=== PATIENT | male | born 1995 | race Caucasian/White ===

== ENCOUNTER 2022-11-15 09:31 | Inpatient (IN) | payer MEDICAID ==
[~2022-11-15] VITALS: Ht 180.3 cm; Wt 101.6 kg
[2022-11-15 09:44] VITALS: BP 184/102
[2022-11-15 10:53] LABS: BASOPHILS % (AUTO) 0.2 % (0.0-2.0); EOSINOPHILS % (AUTO) 0.1 % (0.0-4.0); HEMATOCRIT 40.8 % (36-52); LYMPHOCYTES % (AUTO) 5.7 % (20.5-51.1); MEAN CORPUSCULAR HEMOGLOBIN 29 pg (27-31); MEAN CORPUSCULAR HGB CONC 34 g/dL (33-37); MEAN CORPUSCULAR VOLUME 84.7 fL (80-94); MONOCYTES # (AUTO) 1.2 K/uL (0.8-1.0); MONOCYTES % (AUTO) 7.4 % (1.7-9.3); NEUTROPHILS # (AUTO) 14.5 K/uL (1.8-7.7); NEUTROPHILS % (AUTO) 86.6 % (42.2-75.2); PLATELET COUNT (AUTO) 242 K/uL (140-450); RED BLOOD CELL COUNT(AUTO) 4.81 MIL/uL (4.20-6.10); RED CELL DISTRIBUTION WIDTH 12.7 % (11.6-13.7); WHITE BLOOD COUNT (AUTO) 16.7 K/uL (4.8-10.8)
[2022-11-15 10:55] LABS: BILIRUBIN,URINE 1+ (NEGATIVE); BLOOD, URINE 2+ (NEGATIVE); COLOR,URINE YELLOW (YELLOW); LEUKOCYTE ESTERASE ,URINE NEGATIVE (NEGATIVE); NITRITE, URINE NEGATIVE (NEGATIVE); PH,URINE 6.5 (5.0-9.0); UGLUCOSE NEGATIVE (NEGATIVE)
[2022-11-15 11:05] LABS: APPEARANCE,URINE CLOUDY (CLEAR)
[2022-11-15 11:08] LABS: RBC,URINE 11-20 (MOD) /HPF (0-5)
[2022-11-15 11:09] LABS: URINE AMORPHOUS URATE 1+ /HPF (None Seen)
[2022-11-15] MEDS ORDERED: ONDANSETRON 4 MG ODT PO ONE (11:20)
[2022-11-15] MEDS ORDERED: FAMOTIDINE 20 MG TAB PO ONE (11:20)
[2022-11-15] MEDS ORDERED: ALUMINUM HYD/MAG/SIMETHICONE 30 ML UDC PO ONE (11:20)
[2022-11-15 11:21] LABS: ALBUMIN 3.9 g/dL (3.4-5.0); ANION GAP 13.4 (8-16); CARBON DIOXIDE 29.8 mmol/L (21-32); CREATININE 1.1 mg/dL (0.6-1.3); POTASSIUM 3.2 mmol/L (3.5-5.1)
[2022-11-15] MEDS ORDERED: NACL 0.9% 1,000 ML IV ONE (12:45)
[2022-11-15] MEDS ORDERED: metroNIDAZOLE 500 MG/NS PREMIX 100 ML IV ONE (12:45)
[2022-11-15] MEDS ORDERED: KETOROLAC 15 MG/ML VIAL IVP ONE (12:45)
[2022-11-15] MEDS ORDERED: MORPHINE SULFATE 4 MG/ML SYR IVP ONE (12:50)
--- NOTE | 2022-11-15 13:00 | NUR ---
pt sleeping, no ac distress, sr on cm, o2 sat 98% ra, sr up times 2
[2022-11-15] MEDS ORDERED: cefTRIAXone 1,000 MG VIAL ONE (13:13)
[2022-11-15] MEDS ORDERED: ONDANSETRON 4 MG/2 ML VIAL IM/IVP PRN (13:55)
[2022-11-15] MEDS ORDERED: ACETAMINOPHEN 325 MG TAB PO PRN (13:55)
[2022-11-15] MEDS ORDERED: ZOLPIDEM 5 MG TAB PO PRN (13:55)
[2022-11-15] MEDS ORDERED: HYDROcodone/APAP 7.5/325 MG 1 TAB PO PRN (13:55)
[2022-11-15] MEDS ORDERED: DOCUSATE SODIUM 100 MG GELCAP PO PRN (13:55)
[2022-11-15] MEDS: NACL 0.9% 1,000 ML IV SCH (13:55)
[2022-11-15] MEDS ORDERED: guaiFENesin DM 200/20 MG-10 ML 10 ML UDC PO PRN (13:55)
[2022-11-15 14:14] LABS: MAGNESIUM 1.9 mg/dL (1.8-2.4); PHOSPHORUS 2.8 mg/dL (2.5-4.9)
--- NOTE | 2022-11-15 15:00 | NUR ---
a/o times 4, nad, abd pain 07/21, no n/v, sr on cm, o2 sat 98% ra, sr up times 2. elev bp, Dr Kwok made aware, no med orders at this time, stated let it to be addressed once admitted
[2022-11-15 15:30] VITALS: BP 182/105
--- NOTE | 2022-11-15 15:30 | NUR ---
PT WAS BROUGHT IN FROM THE ED IN STABLE CONDITION, ABLE TO AMBULATE TO THE BED WITH A STEADY GAIT. ON ROOM AIR WITH CHEST RISING AND FALLING EVEN AND UNLABORED. IV TO LEFT AC 20 G, PATENT AND INTACT CONNECTED TO NS @60. PT DENIES PAIN, N/V AT THIS TIME. A&OX4, SKIN INTACT, LUNGS CLEAR, S1&S2 HEART SOUNDS, ACTIVE BOWEL SOUNDS, +2 PEDAL PULSES, NO EDEMA NOTED, NO WEAKNESS IN EXTREMITIES NOTED. BLOOD PRESSURE NOTED TO BE ELEVATED UPON ARRIVAL, MD NOTIFIED. PENDING NEW ORDERS. COMMUNICATION BOARD UPDATE, PT EDUCATED ON HOSPITAL SETTING AND CALL LIGHT. ALL SAFETY MEASURES IN PLACE, CALL LIGHT WITHIN REACH.
[2022-11-15 15:36] LABS: PROTHROMBIN TIME 10.2 secs (10.8-13.4)
--- NOTE | 2022-11-15 15:38 | NUR ---
pt to floor, report to LIAM Smith no events
[2022-11-15] MEDS: POTASSIUM CHLORIDE 10 MEQ TABER PO PRN (16:12)
[2022-11-15] MEDS: hydrALAZINE 20 MG/ML VIAL IVP PRN (16:13)
--- NOTE | 2022-11-15 16:13 | NUR ---
PRN HYDRALAZINE ADMINISTERED PER MD ORDER, PT EDUCATION PROVIDED. PT TOLERATED.
--- NOTE | 2022-11-15 16:30 | NUR ---
CALLED PTS MOTHER, MARIS, , TO INFORM HER OF PTS ADMISSION, ROOM NUMBER, AND POC PER PTS REQUEST. ALL QUESTIONS ANSWERED.
--- NOTE | 2022-11-15 17:13 | NUR ---
REASSESSED BLOOD PRESSURE, NOTIFIED MD OF CONTINUED HYPERTENSION. PENDING NEW ORDERS.
[2022-11-15] MEDS ORDERED: amLODIPine 5 MG TAB PO SCH (17:30)
--- NOTE | 2022-11-15 17:47 | NUR ---
ONE TIME DOSE, AMLODIPINE ADMINISTERED PER MD ORDER. PT EDUCATION PROVIDED, PT VERBALIZED UNDERSTANDING. PT AMBULATED TO RESTROOM. ALL NEEDS CURRENTLY MET.
[2022-11-15 20:00] VITALS: BP 155/78
--- NOTE | 2022-11-15 20:00 | NUR ---
RECEIVED PT AAOX4 , IV SITE INTACT AND PATENT , NPO EXCEPTS MEDS , NO S SX OF ADISTRESS NOTED , DENIES PAIN AT THIS TIME , WILL CONT. TO MONITOR , IVF INFUSING WELL .
[2022-11-15] MEDS: PIPERACILLIN/TAZOBACTAM 3.375 GM in DEXTROSE 5% 50 ML IV SCH (21:18)
--- NOTE | 2022-11-16 | NUR ---
ROUNDS , NO S / SX OF ACUTE DISTRESS NOTED , DENIES PAIN , CALL LIGHT URINAL WITHIN REACH .
[2022-11-16] MEDS: NACL 0.9% 1,000 ML IV SCH ×2 (03:07→05:40)
--- NOTE | 2022-11-16 03:25 | NUR ---
ROUNDS , NO COMPLAIN MADE , BP 154 / 95 - WILL CONT. TO MONITOR .
[2022-11-16 04:00] VITALS: BP 154/92
[2022-11-16] MEDS: PIPERACILLIN/TAZOBACTAM 3.375 GM in DEXTROSE 5% 50 ML IV SCH ×3 (05:34→21:52)
--- NOTE | 2022-11-16 05:54 | NUR ---
ROUNDS , NO COMPLAIN MAD4E , WILL CONT. TO MONITOR .
[2022-11-16 07:07] LABS: BASOPHILS # (AUTO) 0.1 K/uL (0.00-0.22); BASOPHILS % (AUTO) 0.4 % (0.0-2.0); EOSINOPHILS # (AUTO) 0.1 K/uL (0-0.4); EOSINOPHILS % (AUTO) 0.6 % (0.0-4.0); HEMATOCRIT 38.1 % (36-52); HEMOGLOBIN 13.4 g/dL (12.0-18.0); LYMPHOCYTES # (AUTO) 1.7 K/uL (2.0-11.5); LYMPHOCYTES % (AUTO) 11.3 % (20.5-51.1); MEAN CORPUSCULAR HEMOGLOBIN 29 pg (27-31); MEAN CORPUSCULAR HGB CONC 35 g/dL (33-37); MEAN CORPUSCULAR VOLUME 83.4 fL (80-94); MONOCYTES # (AUTO) 1.6 K/uL (0.8-1.0); MONOCYTES % (AUTO) 11.1 % (1.7-9.3); NEUTROPHILS # (AUTO) 11.3 K/uL (1.8-7.7); NEUTROPHILS % (AUTO) 76.6 % (42.2-75.2); PLATELET COUNT (AUTO) 211 K/uL (140-450); RED BLOOD CELL COUNT(AUTO) 4.57 MIL/uL (4.20-6.10); RED CELL DISTRIBUTION WIDTH 12.7 % (11.6-13.7); WHITE BLOOD COUNT (AUTO) 14.7 K/uL (4.8-10.8)
[2022-11-16 07:14] LABS: ANION GAP 14.5 (8-16); CREATININE 0.9 mg/dL (0.6-1.3); POTASSIUM 3.5 mmol/L (3.5-5.1)
[2022-11-16 07:15] LABS: PHOSPHORUS 2.9 mg/dL (2.5-4.9)
--- NOTE | 2022-11-16 07:25 | NUR ---
RECEIVED ENDORSEMENT FROM GOLF COURSE MANAGER NURSE FOR CONTINUITY OF CARE. PT IS AWAKE AND ALERT. STABLE AND NO SIGNS OF DISTRESS. WILL CONTINUE TO MONITOR.
[2022-11-16] MEDS: PANTOPRAZOLE 40 MG TABEC PO SCH (08:42)
[2022-11-16] MEDS: amLODIPine 5 MG TAB PO SCH (08:42)
--- NOTE | 2022-11-16 10:36 | NUR ---
PATIENT HAS BEEN SCREENED AND CATEGORIZED LOW NUTRITION RISK. PATIENT WILL BE SEEN WITHIN 7 DAYS OF ADMISSION. 11/22/[address]
[2022-11-16 12:00] VITALS: BP 154/92
[2022-11-16] MEDS ORDERED: MORPHINE SULFATE 2 MG/ML SYR ONE (15:20)
[2022-11-16] MEDS ORDERED: MORPHINE SULFATE 2 MG/ML SYR IVP ONE (15:40)
--- NOTE | 2022-11-16 15:42 | NUR ---
[facility] CALLED FOR MORPHINE FOR PT UNDERGOING HIDA. 2MG/ML WAS GIVEN TO PT AT 1532H.
--- NOTE | 2022-11-16 16:19 | NUR ---
DC PLANN[age] YRS OLD MALE PATIENT WAS ADMITTED FROM HOME WITH A DX OF CHOLECYSTITIS. PATIENT HAS NO MEDICAL HX. ABD US SHOWED CHOLELITHIASIS AND GALLBLADDER WALL THICKENING. CXR SHOWED NO ACUTE CARDIOPULMONARY DISEASE . RAPID COVID TEST NEGATIVE. ADMINISTERED IVF, IV ABX ZOSYN AND CONTINUED HOME MEDS. HIDA SCAN ORDERED. CONSULTED WITH SURGEON DR BRIGHT. DC PLAN TO GO HOME WHEN STABLE. CM TO FOLLOW.
[2022-11-16] MEDS: hydrALAZINE 20 MG/ML VIAL IVP PRN (16:49)
--- NOTE | 2022-11-16 16:54 | NUR ---
GIVEN HYDRALAZINE 10MG FROM THE 20MG VIAL, VERIFIED WITH NURSE FOR BP 177/ 114 . [id number]
[2022-11-16 20:00] VITALS: BP 150/84
--- NOTE | 2022-11-17 | NUR ---
REMINDS , NPO - FOR SURGERY THIS AM , PT VERBALIZES UNDERSTANDING .
--- NOTE | 2022-11-17 04:00 | NUR ---
ROUNDS , NO COMPLAIN MADE , AWAKE
[2022-11-17] MEDS: PIPERACILLIN/TAZOBACTAM 3.375 GM in DEXTROSE 5% 50 ML IV SCH ×3 (05:27→22:06)
--- NOTE | 2022-11-17 06:00 | NUR ---
ROUNDS , NO COMPLAIN MADE , AWAKE .
[2022-11-17 06:39] LABS: BASOPHILS % (AUTO) 0.2 % (0.0-2.0); EOSINOPHILS # (AUTO) 0.1 K/uL (0-0.4); EOSINOPHILS % (AUTO) 0.6 % (0.0-4.0); HEMATOCRIT 37.9 % (36-52); HEMOGLOBIN 12.9 g/dL (12.0-18.0); LYMPHOCYTES # (AUTO) 1.6 K/uL (2.0-11.5); LYMPHOCYTES % (AUTO) 8.9 % (20.5-51.1); MEAN CORPUSCULAR HEMOGLOBIN 29 pg (27-31); MEAN CORPUSCULAR HGB CONC 34 g/dL (33-37); MEAN CORPUSCULAR VOLUME 84.8 fL (80-94); MONOCYTES # (AUTO) 1.9 K/uL (0.8-1.0); MONOCYTES % (AUTO) 10.7 % (1.7-9.3); NEUTROPHILS # (AUTO) 14.5 K/uL (1.8-7.7); NEUTROPHILS % (AUTO) 79.6 % (42.2-75.2); PLATELET COUNT (AUTO) 224 K/uL (140-450); RED BLOOD CELL COUNT(AUTO) 4.47 MIL/uL (4.20-6.10); RED CELL DISTRIBUTION WIDTH 12.7 % (11.6-13.7); WHITE BLOOD COUNT (AUTO) 18.2 K/uL (4.8-10.8)
[2022-11-17 06:50] LABS: ANION GAP 12.3 (8-16); CARBON DIOXIDE 27.9 mmol/L (21-32); POTASSIUM 3.2 mmol/L (3.5-5.1)
[2022-11-17 06:53] LABS: MAGNESIUM 1.9 mg/dL (1.8-2.4)
--- NOTE | 2022-11-17 07:23 | NUR ---
ENDORSED FOR CONT. OF CARE .
[2022-11-17] MEDS ORDERED: SUGAMMADEX SODIUM 200 MG/2 ML VIAL IV ONE ×3 (09:00→11:51)
[2022-11-17] MEDS ORDERED: DEXAMETHASONE 4 MG/ML VIAL ONE ×2 (09:00→11:50)
[2022-11-17] MEDS ORDERED: PROPOFOL 200 MG/20 ML VIAL IV ONE ×3 (09:00→11:50)
[2022-11-17] MEDS ORDERED: HYDROmorphone PFS 2 MG/ML SYR ONE ×4 (09:00→13:18)
[2022-11-17] MEDS ORDERED: fentaNYL citrate 0.05 MG/ML - 50mL vial IV ONE ×2 (09:00→11:00)
[2022-11-17] MEDS ORDERED: ceFAZolin 2,000 MG VIAL ONE (09:00)
[2022-11-17] MEDS: PANTOPRAZOLE 40 MG TABEC PO SCH (09:00)
[2022-11-17] MEDS ORDERED: KETOROLAC 30 MG/ML VIAL ONE ×2 (09:00→11:50)
[2022-11-17] MEDS ORDERED: METOCLOPRAMIDE 10 MG/2 ML INJ VIAL ONE (09:00)
[2022-11-17] MEDS ORDERED: ONDANSETRON 4 MG/2 ML VIAL ONE ×3 (09:00→11:50)
[2022-11-17] MEDS: amLODIPine 5 MG TAB PO SCH (09:36)
[2022-11-17] MEDS ORDERED: ROCURONIUM 50 MG/5 ML VIAL IV ONE ×2 (11:00→11:50)
[2022-11-17] MEDS ORDERED: DESMOPRESSIN 4 MCG/ML AMP ONE (11:00)
[2022-11-17] MEDS ORDERED: LIDOCAINE 1% 500 MG/50 ML VIAL ONE (11:04)
[2022-11-17] MEDS ORDERED: BUPIVACAINE-MPF/EPI 0.25% 30 ML VIAL INJ ONE (11:05)
[2022-11-17] MEDS ORDERED: ONDANSETRON 4 MG/2 ML VIAL IVP PRN (11:40)
[2022-11-17] MEDS ORDERED: fentaNYL citrate 0.05 MG/ML VIAL ONE (11:45)
[2022-11-17] MEDS ORDERED: SUCCINYLCHOLINE CHLORIDE 200 MG/10 ML VIAL IVP ONE (11:50)
[2022-11-17] MEDS: HYDROmorphone 1 MG/ML AMP IVP PRN ×3 (13:12→13:32)
--- NOTE | 2022-11-17 14:30 | NUR ---
PT LEFT FOR SURGERY 11AM (LAP JENI), ARRIVED BACK TO [facility] 1330. VITAL SIGNS TAKEN Q15MIN FOR FIRST HOUR THEN Q30 FOR THE NEXT, VITAL SIGNS ALL STABLE. NO REPORTS OF PAIN OR DISCOMFORT. WILL CONTINUE WITH PATIENT CARE.
[2022-11-17] MEDS: NACL 0.9% 1,000 ML IV SCH (16:02)
--- NOTE | 2022-11-17 19:30 | NUR ---
RECEIVED ENDORSEMENT FROM DAY SHIFT NURSE FOR CONTINUITY OF CARE. PT IS AWAKE, ALERT AND VERBALLY RESPONSIVE. PT HAD SURGERY TODAY 11/17/22. PT VERBALIZED OF TOLERABLE PAIN WHICH DOES NOT NEED ANY PAIN MEDICATION AT THIS TIME.
--- NOTE | 2022-11-17 19:30 | NUR ---
ENDORSED PT TO NIGHTSHIFT NURSE FOR CONTINUITY OF CARE. PT IS RESTING IN BED, STABLE. NO SIGNS OF DISTRESS, NO REPORTS OF PAIN. PT STATED HE IS HUNGRY, INFORMED MD OF DIET ORDER. ENDORSED TO NIGHTSPRFT.
[2022-11-17 20:00] VITALS: BP 130/82
[2022-11-17] MEDS: POTASSIUM CHLORIDE 10 MEQ TABER PO PRN (22:07)
--- NOTE | 2022-11-18 | NUR ---
PT IS AWAKE AND WATCHING TV, NO COMPLAINTS OF PAIN.
[2022-11-18] MEDS: NACL 0.9% 1,000 ML IV SCH (03:31)
[2022-11-18 04:00] VITALS: BP 125/81
[2022-11-18] MEDS: PIPERACILLIN/TAZOBACTAM 3.375 GM in DEXTROSE 5% 50 ML IV SCH (05:42)
[2022-11-18 06:39] LABS: BASOPHILS % (AUTO) 0.1 % (0.0-2.0); HEMATOCRIT 36.5 % (36-52); HEMOGLOBIN 12.4 g/dL (12.0-18.0); LYMPHOCYTES # (AUTO) 0.9 K/uL (2.0-11.5); LYMPHOCYTES % (AUTO) 6.8 % (20.5-51.1); MEAN CORPUSCULAR HEMOGLOBIN 29 pg (27-31); MEAN CORPUSCULAR HGB CONC 34 g/dL (33-37); MEAN CORPUSCULAR VOLUME 85.5 fL (80-94); MONOCYTES # (AUTO) 1.3 K/uL (0.8-1.0); MONOCYTES % (AUTO) 9.8 % (1.7-9.3); NEUTROPHILS # (AUTO) 11.2 K/uL (1.8-7.7); NEUTROPHILS % (AUTO) 83.3 % (42.2-75.2); PLATELET COUNT (AUTO) 234 K/uL (140-450); RED BLOOD CELL COUNT(AUTO) 4.27 MIL/uL (4.20-6.10); RED CELL DISTRIBUTION WIDTH 12.6 % (11.6-13.7); WHITE BLOOD COUNT (AUTO) 13.4 K/uL (4.8-10.8)
[2022-11-18 06:57] LABS: MAGNESIUM 2.1 mg/dL (1.8-2.4)
--- NOTE | 2022-11-18 07:20 | NUR ---
ASSUMED CONTINUITY OF CARE. INITIAL ASSESSMENT DONE. KEEP COMFORTABLE ON BED. CALL LIGHT WITHIN REACH.
[2022-11-18 07:27] LABS: ANION GAP 9.5 (8-16); CARBON DIOXIDE 31.3 mmol/L (21-32); CREATININE 0.9 mg/dL (0.6-1.3); POTASSIUM 3.8 mmol/L (3.5-5.1)
[2022-11-18 08:00] VITALS: BP 130/81
--- NOTE | 2022-11-18 08:00 | NUR ---
Patient's Plan of Care was discussed and reviewed with SWEATBAND SEPARATOR: BUD TALAMANTES
[2022-11-18] MEDS ORDERED: IBUP-1842 PO (09:09)
[2022-11-18] MEDS ORDERED: AMOX-999 PO (09:09)
[2022-11-18] MEDS: PANTOPRAZOLE 40 MG TABEC PO SCH (09:13)
[2022-11-18] MEDS: amLODIPine 5 MG TAB PO SCH (09:14)
--- NOTE | 2022-11-18 11:25 | NUR ---
D/C HOME VIA WHEELCHAIR ACCOMPANIED BY PT. MOTHER. IN STABLE CONDITION. INFORMED CHARGE NURSE SUSANNAH BROOKS.
== END 2022-11-18 11:35 | disposition home or self-care (01) | DRG 710 ==
LOC: MED 09:31 → MMU 13:53 → MTU 15:18
PROVIDERS: ADMIT Student in an Organized Health Care Education/Training Program; ATTEND Student in an Organized Health Care Education/Training Program
PROC: 0DNU4ZZ Release Omentum, Percutaneous Endoscopic Approach (ICD-10-PCS; 2022-11-17)
PROC: 0FT44ZZ Resection of Gallbladder, Percutaneous Endoscopic Approach (ICD-10-PCS; principal; 2022-11-17 11:20)
DX: A41.9 Sepsis, unspecified organism (principal); K65.9 Peritonitis, unspecified; K81.0 Acute cholecystitis; E87.8 Other disorders of electrolyte and fluid balance, not elsewhere classified; E87.1 Hypo-osmolality and hyponatremia; E87.6 Hypokalemia; Z20.822 Contact with and (suspected) exposure to COVID-19
CPT/HCPCS: 36415; 71045; 76705; 78445; 80048; 80053; 81001; 83605; 83690; 83735; 84100; 85025; 85610; 85730; 86886; 86900; 86901; 87040; 87081; 88304; 96374; 96375; 99285; J0330; J0360; J0696; J1100; J1170; J1885; J2001; J2270; J2405; J2543; J2597; J2704; J2765; J3010; J3490; J7060; J7120; Q0092; Q0162